=== PATIENT | male | born 1995 | race Caucasian/White ===

== ENCOUNTER 2016-09-19 23:34 | Emergency (ER) | payer OTHER, MEDICAID ==
[~2016-09-19] VITALS: Ht 170.2 cm; Wt 55.0 kg
[2016-09-20] MEDS ORDERED: MORPHINE SULFATE 4 MG/ML, 1ML ONE (00:08)
[2016-09-20] MEDS ORDERED: KETOROLAC 30 MG/1 ML ONE (00:08)
[2016-09-20] MEDS ORDERED: ONDANSETRON 2MG/ML, 2ML ONE ×2 (00:08→01:11)
[2016-09-20] MEDS ORDERED: NAPR-874 PO (00:17)
[2016-09-20 00:27] LABS: HEMOGLOBIN 15.1 g/dL (13.7-18.0)
[2016-09-20] MEDS ORDERED: KETOROLAC 30 MG/1 ML IVPush ONE (00:30)
[2016-09-20] MEDS ORDERED: SODIUM CHLORIDE 0.9% 1,000ML IVBOLUS ONE (00:30)
[2016-09-20] MEDS ORDERED: SODIUM CHLORIDE FLUSH 10ML SYR IVF ONE (00:30)
[2016-09-20] MEDS ORDERED: ONDANSETRON 2MG/ML, 2ML IVPush ONE ×2 (00:30→01:30)
[2016-09-20] MEDS ORDERED: MORPHINE SULFATE 4 MG/ML, 1ML IVPush PRN (00:30)
[2016-09-20 00:34] LABS: BLOOD UREA NITROGEN 16 mg/dL (7-18)
[2016-09-20] MEDS ORDERED: LIDOCAINE 1%, 20ML ONE (00:56)
[2016-09-20] MEDS ORDERED: LORazepam 2 MG/ML, 1ML ONE (01:21)
[2016-09-20] MEDS ORDERED: LIDOCAINE 1%, 20ML INFIL ONE (01:30)
[2016-09-20] MEDS ORDERED: LORazepam 2 MG/ML, 1ML IVPush ONE (01:30)
[2016-09-20 01:45] VITALS: BP 116/65
== END 2016-09-20 02:11 | disposition home or self-care (01) ==
LOC: ED 23:59
DX: G44.219 Episodic tension-type headache, not intractable (principal); L04.0 Acute lymphadenitis of face, head and neck; M62.838 Other muscle spasm
CPT/HCPCS: 36415; 62270; 70450; 80048; 82040; 85025; 85651; 93005; 96361; 96374; 96375; 96376; 99285; J1885; J2405; J3490; J7030

== ENCOUNTER 2017-03-11 13:39 | Emergency (ER) | payer OTHER, MEDICAID ==
[~2017-03-11] VITALS: Ht 170.2 cm; Wt 51.2 kg
[~2017-03-11 13:39] MED LIST: NAPR250T6 PO
[2017-03-11] MEDS ORDERED: HYDROmorphone 1 MG/ML, 1ML IM ONE (14:30)
[2017-03-11] MEDS ORDERED: LIDOCAINE 1%, 20ML INFIL ONE (14:30)
[2017-03-11] MEDS ORDERED: DIPH,PERTUSS(ACELL),TET VAC/PF 0.5 ML IM-VACC ONE ×2 (14:30→14:45)
[2017-03-11] MEDS ORDERED: LIDOCAINE 1%, 20ML ONE (14:44)
[2017-03-11] MEDS ORDERED: HYDROmorphone 1 MG/ML, 1ML ONE (14:44)
[2017-03-11] MEDS ORDERED: BACITRACIN ZINC OINT 500U/GM, 0.9 GM ONE (16:39)
[2017-03-11 16:45] VITALS: BP 122/76
== END 2017-03-11 16:49 | disposition home or self-care (01) ==
LOC: ED 14:44
DX: S51.012A Laceration without foreign body of left elbow, initial encounter (principal); V09.9XXA Pedestrian injured in unspecified transport accident, initial encounter; Y93.51 Activity, roller skating (inline) and skateboarding; Y92.89 Other specified places as the place of occurrence of the external cause; Y99.9 Unspecified external cause status
CPT/HCPCS: 13120; 70450; 73080; 90471; 90715; 96372; 99285; J1170

== ENCOUNTER 2019-06-11 19:17 | Emergency (ER) | payer MEDICARE, MEDICAID ==
[~2019-06-11] VITALS: Ht 177.8 cm; Wt 61.6 kg
--- NOTE | 2019-06-11 20:05 | NUR ---
assessment made. ERP at bedside.
[2019-06-11] MEDS ORDERED: HYDROmorphone 1 MG/ML, 1ML INJ ONE (20:12)
--- NOTE | 2019-06-11 20:17 | NUR ---
patient medicated for pain. to CT scan.
[2019-06-11] MEDS ORDERED: HYDROmorphone 2 MG/ML, 1ML IM ONE (20:30)
[2019-06-11 21:05] LABS: MICROSCOPIC NOT IND
[2019-06-11 21:16] LABS: CULTURE INDICATED? NO
--- NOTE | 2019-06-11 21:20 | NUR ---
labs and CT scan resulted. chart up for MD to re-eval.
[2019-06-11 21:41] VITALS: BP 123/70
--- NOTE | 2019-06-11 21:41 | NUR ---
re-evaluation done. patient discharged with prescription and instruction. verbalized understanding.
== END 2019-06-11 21:44 | disposition home or self-care (01) ==
LOC: ED 20:06
DX: G89.11 Acute pain due to trauma (principal); M25.522 Pain in left elbow; R10.32 Left lower quadrant pain; F17.200 Nicotine dependence, unspecified, uncomplicated
CPT/HCPCS: 73080; 74176; 81003; 96372; 99284; J1170